=== PATIENT | female | born 1950 | race African-American/Black ===

== ENCOUNTER 2022-12-07 21:13 | Observation (INO) | payer MEDICARE ==
[2022-12-07 21:52] LABS: #Eosinphils 0.3 thou/uL (0.0-0.7); %Basophils 0.1 % (0.0-1.0); %Eosinophils 3.7 % (0.0-10.0); %Lymphocytes 24.7 % (21.0-51.0); %Monocytes 14.6 % (0.0-10.0); %Neutrophils 56.8 % (42.0-75.0); Hemoglobin 10.9 g/dL (12.0-16.0); Mean Corpuscular HGB CONC 31.8 g/dL (32.0-36.0); Mean Corpuscular Hemoglobin 24.8 pg (27.0-31.0); Mean Platelet Volume 9.5 fL (7.4-10.4); Platelet Count 220 10x3/uL (130-400); RBC Distribution Width 17.4 % (11.5-14.5)
[2022-12-07 22:05] LABS: INR-International Normal Ratio 1.4
[2022-12-07 22:06] LABS: PTT 28.7 sec (22.9-36.1)
[2022-12-07 22:13] LABS: ALT (SGPT) 26 U/L (8-55); AST (SGOT) 34 U/L (5-34); Albumin 3.9 g/dL (3.4-4.8); Alkaline Phosphatase 153 U/L (40-110); Anion Gap 13 mmol/L (10-20); BUN (Urea Nitrogen) 34 mg/dL (9.8-20.1); Bilirubin, Total 0.2 mg/dL (0.2-1.2); Calc. Creatinine Clearance 0 mL/min (70-130); Calcium 9.9 mg/dL (7.8-10.44); Carbon Dioxide 23 mmol/L (23-31); Chloride 107 mmol/L (98-107); Estimated GFR 48; Globulin 3.5 g/dL (2.4-3.5); Glucose 92 mg/dL (83-110); Potassium 4.2 mmol/L (3.5-5.1); Protein, Total 7.4 g/dL (5.8-8.1); Sodium 139 mmol/L (136-145)
[2022-12-07] MEDS ORDERED: Dextrose 5% in Water 1,000 ML IV PRN (23:45)
[2022-12-07] MEDS ORDERED: Ondansetron PF 4 MG/2 ML Vial IVP PRN (23:45)
[2022-12-07] MEDS ORDERED: hydrALAZINE 20 MG/ML VIAL SLOW IVP PRN (23:45)
[2022-12-07] MEDS ORDERED: Dextrose 50% Abboject 50 ML SYRINGE SLOW IVP PRN (23:45)
[2022-12-07] MEDS ORDERED: Ipratropium/Albuterol 3 ML NEB NEB PRN (23:45)
[2022-12-07] MEDS ORDERED: Sodium Chloride 0.9% 500 ML IV SCH (23:45)
[2022-12-08] MEDS ORDERED: ADMIXTURE FEE IV SCH (00:30)
[2022-12-08] MEDS ORDERED: HUM PROTHROMBIN CPLX IV SCH (00:30)
[2022-12-08] MEDS ORDERED: [UNRECOGNIZED DRUG - OTHER] IV SCH (00:30)
[2022-12-08 04:22] VITALS: BMI 25.9
[2022-12-08] MEDS ORDERED: Famotidine/PF 20 mg/2ml Vial SLOW IVP SCH (09:00)
[2022-12-08] MEDS: Acetaminophen 500 MG TAB PO SCH ×3 (09:55→12:16)
[2022-12-08 15:53] VITALS: BP 118/63; TEMP 98
== END 2022-12-08 16:39 | disposition home or self-care (01) ==
LOC: ERS 21:13 → NEURO 12-08 02:24
PROVIDERS: ADMIT Surgery; ATTEND Surgery
DX: S06.5X0A Traumatic subdural hemorrhage without loss of consciousness, initial encounter (principal); S00.03XA Contusion of scalp, initial encounter; G89.11 Acute pain due to trauma; I10 Essential (primary) hypertension; E78.5 Hyperlipidemia, unspecified; M79.89 Other specified soft tissue disorders; Z86.73 Personal history of transient ischemic attack (TIA), and cerebral infarction without residual deficits; Z79.01 Long term (current) use of anticoagulants; Z79.899 Other long term (current) drug therapy; Z88.5 Allergy status to narcotic agent; Z88.8 Allergy status to other drugs, medicaments and biological substances; Z98.1 Arthrodesis status; W05.0XXA Fall from non-moving wheelchair, initial encounter; Y92.129 Unspecified place in nursing home as the place of occurrence of the external cause
CPT/HCPCS: 70450 ×2; 72125; 73620; 80053; 85025; 85610; 85730; 96375; 97110; 97530; 97535; G0378 ×2; J7168; 36415; 96374; S0028